=== PATIENT | female | born 1950 | race Caucasian/White ===

== ENCOUNTER → 2024-05-19 08:21 | Outpatient (REF) | payer MEDICARE, BC, SELFPAY | LOC: HWRCS 08:21 | PROVIDERS: ATTENDING PHYSICIAN Internal Medicine Interventional Cardiology; FAMILY PHYSICIAN Family Medicine | DX: I48.11 Longstanding persistent atrial fibrillation (principal) | CPT/HCPCS: 93306 ==

== ENCOUNTER 2024-06-02 06:14 | Day surgery (SDC) | payer MEDICARE, BC, SELFPAY ==
[2024-06-02 09:49] LABS: Glucose - Point of Care 113 mg/dl (70-99)
[2024-06-02 09:57] VITALS: BMI 21.7
[2024-06-02 09:58] VITALS: BP 145/95
[2024-06-02 11:33] VITALS: BP 117/81
[2024-06-02 11:45] VITALS: BP 131/81
[2024-06-02 12:00] VITALS: BP 154/79
== END 2024-06-02 12:35 | disposition home or self-care (01) ==
LOC: SDS 06:14
PROVIDERS: ATTENDING PHYSICIAN Internal Medicine Gastroenterology
DX: K64.8 Other hemorrhoids (principal); Z12.11 Encounter for screening for malignant neoplasm of colon; R19.5 Other fecal abnormalities; K57.30 Diverticulosis of large intestine without perforation or abscess without bleeding
CPT/HCPCS: G0105; 82962